=== PATIENT | male | born 1980 | race Caucasian/White ===

== ENCOUNTER 2020-06-12 10:09 | Emergency (ER) | payer OTHER ==
[~2020-06-12] VITALS: Ht 175.3 cm; Wt 90.9 kg
[2020-06-12] MEDS ORDERED: PRIL20TA2 PO (10:25)
--- NOTE | 2020-06-12 10:57 | REP ---
INDICATION: Coronavirus workup COMPARISON: None. TECHNIQUE: Portable AP view of the chest FINDINGS: The mediastinum and cardiac silhouette are within normal limits for portable technique. The lung ricketts are clear without acute consolidation, effusion, or pneumothorax. Skeletal structures are intact. IMPRESSION: No acute cardiopulmonary process appreciated. <Electronically signed by Dereck Graham > 06/12/20 1994
[2020-06-12 11:07] LABS: BASO # 0.1 10^3/uL (0.0-0.2); EOS % 0.1 % (0.0-3.0); HEMATOCRIT 40.5 % (42.0-52.0); HEMOGLOBIN 13.7 g/dl (13.5-17.5); LYMPH % 27.2 % (24.0-44.0); MEAN CORPUSCULAR HGB CONC 33.8 g/dl (32.0-36.5); MEAN CORPUSCULAR VOLUME 94.6 fl (80.0-96.0); MONO # 0.5 10^3/uL (0.0-0.8); MONO % 7.5 % (0.0-5.0); NEUTROPHILS # 4.6 10^3/uL (1.5-8.5); NEUTROPHILS % 63.8 % (36.0-66.0); PLATELET COUNT, AUTOMATED 249 10^3/uL (150-450); RED BLOOD COUNT 4.28 10^6/uL (4.30-6.10); WHITE BLOOD COUNT 7.2 10^3/uL (4.0-10.0)
[2020-06-12 11:18] LABS: INR 0.99; PROTHROMBIN TIME 13.2 SECONDS (12.5-14.3)
[2020-06-12 11:19] LABS: PARTIAL THROMBOPLASTIN TIME 25.5 SECONDS (24.2-38.5)
[2020-06-12] MEDS ORDERED: ISOVUE-370 76% 100ML VIAL As Ordered ONE (11:53)
--- NOTE | 2020-06-12 12:20 | REP ---
INDICATION: chest pain/sob COMPARISON: None. TECHNIQUE: Axial contrast enhanced images from the thoracic inlet to the upper abdomen using pulmonary embolus technique with multiplanar re-formations. 75 ml Isovue 370 intravenous contrast material administered without complication. This CT examination was performed using the following dose reduction techniques: Automated exposure control, adjustment of mA and/or kv according to the patient's size, and use of iterative reconstruction technique. FINDINGS: Satisfactory enhancement of the pulmonary vasculature is achieved and no filling defects are identified to suggest pulmonary embolus. Further evaluation of the mediastinum demonstrates normal thoracic aorta, heart and pericardium. The bilateral lung ricketts are well aerated and clear without consolidation pleural effusion or pneumothorax. Tracheobronchial tree is patent. No nodule or mass lesion is identified. No adenopathy noted. Surrounding musculoskeletal structures intact IMPRESSION: No evidence for pulmonary embolus. No acute mediastinal or pleural parenchymal process. <Electronically signed by Dereck Graham > 06/12/20 [id number]
[2020-06-12 12:48] LABS: ALBUMIN 4.4 GM/DL (3.2-5.2); ALT/SGPT 51 U/L (12-78); BILIRUBIN,TOTAL 0.8 MG/DL (0.2-1.0); BLOOD UREA NITROGEN 14 MG/DL (7-18); CALCIUM LEVEL 9.5 MG/DL (8.5-10.1); CARBON DIOXIDE LEVEL 27 MEQ/L (21-32); CHLORIDE LEVEL 107 MEQ/L (98-107); FREE T4 0.87 NG/DL (0.76-1.46); GLOMERULAR FILTRATION RATE > 60.0 (>60); GLUCOSE, FASTING 93 MG/DL (70-100); LIPASE 77 U/L (73-393); POTASSIUM SERUM 4.2 MEQ/L (3.5-5.1); SODIUM LEVEL 140 MEQ/L (136-145); TOTAL PROTEIN 7.9 GM/DL (6.4-8.2)
[2020-06-12 15:00] VITALS: BP 157/89
--- NOTE | 2020-06-12 19:33 | ECGEPIP ---
[facility] - ED Test Date: 2020-06-12 Pat Name: ELMA DON Department: Room: - Gender: Male Industrial Relations Representative: NICHOLAS : 1980 Requested By: Yina Roa Order Number: [id number] Reading MD: Yina Roa Measurements Intervals [place] Rate: 82 P: 40 WV: 120 QRS: 43 QRSD: 89 T: 16 QT: 383 QTc: 449 Interpretive Statements SINUS RHYTHM WITH SINUS ARRHYTHMIA NONSPECIFIC T-WAVE ABNORMALITY NO PRIOR ECG FOR COMPARISON Electronically Signed on 06-12-2020 19:33:36 EST by Yina Roa
--- NOTE | 2020-06-12 19:39 | ECGEPIP ---
[facility] - ED Test Date: 2020-06-12 Pat Name: ELMA DON Department: Room: - Gender: Male Business Banking Officer: NICHOLAS : 1980 Requested By: Yina Roa Order Number: [id number] Reading MD: Yina Roa Measurements Intervals [place] Rate: 84 P: 26 MI: 112 QRS: 45 QRSD: 93 T: 20 QT: 351 QTc: 417 Interpretive Statements SINUS RHYTHM WITH SHORT MI INTERVAL NONSPECIFIC T-WAVE ABNORMALITY CW 06/12/[address] T WAVE CHANGES Electronically Signed on 06-12-2020 19:39:11 EST by Yina Roa
== END 2020-06-12 15:26 | disposition home or self-care (01) ==
LOC: M ED 10:09 → EDSEX 10:09 → EDBD 10:09 → M ED 15:26
DX: R07.9 Chest pain, unspecified (principal); R06.02 Shortness of breath; I10 Essential (primary) hypertension; E78.5 Hyperlipidemia, unspecified; Z86.711 Personal history of pulmonary embolism; Z87.891 Personal history of nicotine dependence
CPT/HCPCS: 71045; 71275; 80047; 80053; 83690; 84439; 84443; 84484; 85025; 85610; 85730; 93005; 93041; 99285; Q9967; U0002